=== PATIENT | female | born 1985 | race African-American/Black ===

== ENCOUNTER 2020-06-14 03:35 | Emergency (ER) | payer OTHER, MEDICAID ==
[~2020-06-14] VITALS: Ht 154.9 cm; Wt 116.1 kg
[2020-06-14 04:30] LABS: ABSOLUTE BASOPHILS 0.2 thou/uL (0.0-0.2); ABSOLUTE EOSINOPHILS 0.4 thou/uL (0.0-0.7); ABSOLUTE LYMPHOCYTES 5.1 thou/uL (0.8-5.3); ABSOLUTE MONOCYTES 0.9 thou/uL (0.0-1.2); BASOPHILS 1.6 %; EOSINOPHILS 3.9 %; HEMATOCRIT 36.1 % (37.0-47.0); HEMOGLOBIN 11.9 gm/dL (12.0-15.0); LYMPHOCYTES 53.4 %; MCH 23.9 pg (26.0-34.0); MCHC 33.1 g/dL (28.0-37.0); MCV 72.2 fL (80.0-100.0); MONOCYTES 9.8 %; MPV 8.2 fl. (7.2-11.1); NUCLEATED RBCS 0 /100WBC; PLATELET COUNT* 407 thou/uL (150-400); POLYS 31.3 %; RDW-CV 16.6 % (10.5-14.5); WBC 9.5 thou/uL (4.0-11.0)
[2020-06-14 04:34] LABS: URINE BILIRUBIN NEGATIVE (Negative); URINE BLOOD NEGATIVE (Negative); URINE CLARITY CLEAR; URINE COLOR STRAW; URINE GLUCOSE-RANDOM NEGATIVE (Negative); URINE KETONES NEGATIVE (Negative); URINE LEUKOCYTES-REFLEX NEGATIVE (Negative); URINE NITRITE-REFLEX NEGATIVE (Negative); URINE PROTEIN NEGATIVE (Negative); URINE UROBILINOGEN 0.2 E.U./dl (0.2-1.0)
[2020-06-14 04:38] LABS: CREATININE 0.7 mg/dL (0.6-1.3); POTASSIUM 3.8 mmol/L (3.5-5.1)
[2020-06-14 04:46] LABS: ALBUMIN 3.6 g/dL (3.4-5.0); TOTAL BILIRUBIN 0.2 mg/dL (<0.1-1.0); TOTAL PROTEIN 7.5 g/dL (6.4-8.2)
[2020-06-14] MEDS ORDERED: ZOFRAN ODT4 MG PO (06:27)
[2020-06-14] MEDS ORDERED: ULTRAM 50MG TAB50 MG PO (06:27)
[2020-06-14] MEDS ORDERED: CARAFATE 1 GM TA1 GM PO (06:27)
[2020-06-14 06:35] VITALS: BP 150/76
== END 2020-06-14 06:35 | disposition home or self-care (01) ==
LOC: M.ERS 03:35
PROVIDERS: Personal Emergency Response Attendant
DX: K80.50 Calculus of bile duct without cholangitis or cholecystitis without obstruction (principal)